=== PATIENT | female | born 1960 | race Caucasian/White ===

== ENCOUNTER 2016-11-23 16:36 | Emergency (ER) | payer SELFPAY ==
[~2016-11-23] VITALS: Ht 157.5 cm; Wt 54.4 kg
[~2016-11-23 16:36] MED LIST: ACCUPRIL40 MG PO; CILOXAN 0.1 APPLICAT BOTH EYES; FIBER CHOICE1 TABLET PO; LEVSIN-SL0.125 MG SL; LISINOPRIL20 MG PO; MACROBID100 MG PO; NAPROSYN500 MG PO; VENTOLIN HFA18 GM IH; ZANTAC150 MG PO; ZOFRAN ODT4 MG PO; ZOFRAN4 MG PO
[2016-11-23] MEDS ORDERED: PREDNISONE20 MG PO (17:27)
[2016-11-23] MEDS ORDERED: TESSALON PERLE100 MG PO (17:27)
[2016-11-23] MEDS ORDERED: LEVAQUIN500 MG PO (17:27)
[2016-11-23 17:40] VITALS: BP 114/65
== END 2016-11-23 18:06 | disposition home or self-care (01) ==
LOC: EME 16:36 → EXP 16:36
DX: J18.0 Bronchopneumonia, unspecified organism (principal); J32.9 Chronic sinusitis, unspecified; J45.909 Unspecified asthma, uncomplicated
CPT/HCPCS: 99281; 99283; J7512

== ENCOUNTER 2017-11-19 15:22 | Emergency (ER) | payer SELFPAY ==
[~2017-11-19] VITALS: Ht 165.1 cm; Wt 69.3 kg
[~2017-11-19 15:22] MED LIST changes: +LEVAQUIN500 MG PO; +PREDNISONE20 MG PO; +TESSALON PERLE100 MG PO
[2017-11-19 16:40] VITALS: BP 156/69
== END 2017-11-19 16:40 | disposition home or self-care (01) ==
LOC: EME 15:22
DX: J06.9 Acute upper respiratory infection, unspecified (principal); I10 Essential (primary) hypertension; J45.909 Unspecified asthma, uncomplicated; Z88.0 Allergy status to penicillin
CPT/HCPCS: 71046; 87651 90; 94640; 99281; 99284